=== PATIENT | female | born 1985 | race Caucasian/White ===

== ENCOUNTER 2017-02-24 20:24 | Emergency (ER) | payer OTHER ==
--- NOTE | 2017-02-24 23:59 | ED CLINICAL REPORT ---
Clinical Report - Physicians/Mid Levels [facility] [address] [place] [address] 02/24/2017 20:26 [id number] Time Seen: 20:34; initial patient contact, initial documentation, patient care assumed. Arrived- By private vehicle. Historian- patient. HISTORY OF PRESENT ILLNESS Chief Complaint: PELVIC PAIN. 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 It was abrupt in onset and has been constant. The symptoms are described as moderate. Modifying factors. Not worsened by anything. Not relieved by anything. The patient has had moderate, constant, crampy right-sided, suprapubic and left-sided pelvic pain, described as "pain". No vaginal bleeding. No vaginal pain, low back pain, flank pain, abnormal bleeding or vaginal discharge. No pain with urination, urinary frequency, urgency of urination or hematuria. Sexually active- unprotected sex and heterosexual. No exposure to sexually transmitted disease. Does not use control measures. Currently . In 1st trimester. Recently diagnosed. Uncertain of dates. confirmed with home test. Has had no care. G 6. P 1. Ab 4. Not receiving care. Similar symptoms previously: None. Recent medical care: Not recently seen/assessed. REVIEW OF SYSTEMS No nausea, vomiting, diarrhea, headache or fever. No chills, eye discomfort, sore throat, cough or difficulty breathing. No chest pain, skin rash, enlarged lymph nodes or joint pain. All systems otherwise negative, except as recorded above. PAST HISTORY See nurses notes. ( PROBLEMS: UTI - Urinary Tract Infection. Cough. --20:36 Caitlyn Crawford R.N. Depression. --20:44 Caitlyn Crawford R.N. Nephrolithiasis. --20:46 Caitlyn Crawford R.N. The following entry was modified by Caitlyn Crawford R.N., 20:44 . --20:36 Caitlyn Crawford R.N.. ADDITIONAL SURGERIES: Knee Surgery. --20:36 Crawford, Caitlyn, R.N.). Problems: Scoliosis. Nephrolithiasis. Depression. . Additional Surgeries: Knee Surgery. Medications: None. Allergies: Penicillins.(SOB, swelling). SOCIAL HISTORY Former smoker. No alcohol use or drug use. No recent travel. Is a local resident. FAMILY HISTORY Negative. ADDITIONAL NOTES The nursing notes have been reviewed with agreement regarding the chief complaint, HPI, ROS, PMH and patient medications and allergies. PHYSICAL EXAM Vital Signs: 02/24/2017 20:35 BP: 124/76. HR: 96. RR: 20. O2 saturation: 94%. Temp: 98.2 F. Pain level now: 06/06. Have been reviewed as normal and appear to be correct. Appearance: Alert. Oriented X3. No acute distress. Anxious. HEENT: Normal external inspection. ENT: Pharynx normal. Neck: Neck supple. CVS: Heart sounds normal. Respiratory: No respiratory distress. Breath sounds normal. Chest nontender. Abdomen: Soft and nontender. Bowel sounds normal. No organomegaly. No mass. Mildly obese. Back: Normal external inspection. : External inspection abnormal. Speculum exam abnormal. A copious amount of thick, white and malodorous vaginal discharge present (white to dsouza, dc all over labia, thighs). No herpes-like lesions. Bimanual exam normal. Skin: Skin warm and dry. Normal skin color. No rash. Normal skin turgor. Extremities: Extremities nontender. No lower extremity edema. Neuro: Oriented X 3. Mood/affect normal. No motor deficit. No sensory deficit. LABS, X-RAYS, AND EKG Pelvic Sonogram: A single gestation, viable intrauterine (9 week size) is present. Cardiac activity noted. Adnexa normal. No free fluid. Study type: bedside obstetrical evaluation. The study was independently viewed by me. Prior studies were not available for comparison. Laboratory Tests: UA-Culture if indicated: (ESTRADA: 02/24/2017 21:10) ( MsgRcvd 02/24/2017 21:35) Final results Test Result Flag Units (Reference) URINE COLOR YELLOW URINE APPEARANCE SL CLOUDY URINE GLUCOSE TRACE (NEGATIVE) URINE BILIRUBIN NEGATIVE (NEGATIVE) URINE KETONE TRACE (NEGATIVE) URINE SPECIFIC GRAVITY >= 1.030 (1.010-1.030) URINE PH 5.5 (5.0-8.0) URINE PROTEIN NEGATIVE (NEGATIVE) URINE UROBILINOGEN 0.2 EU/dL (0.2-1.0) URINE NITRITE NEGATIVE (NEGATIVE) URINE BLOOD NEGATIVE (NEGATIVE) URINE LEUK ESTERASE POSITIVE (NEGATIVE) URINE RBC NONE SEEN rbc/hpf (0-1) URINE WBC 3-5 wbc/hpf (0-1) URINE EPITHELIAL CELLS 1-3 EPI/hpf (0-5) URINE BACTERIA MANY (4+) (NONE SEEN) URINE COMMENT CULTURE INDICATED URINE CULTURES ARE SET-UP BASED ON THE FOLLOWING CRITERIA:POSITIVE NITRITEPOSITIVE LEUKOCYTE ESTERASEGREATER THAN 10 WHITE BLOOD CELLSMODERATE (2+) OR GREATER BACTERIA Serum Qualitative: (ESTRADA: 02/24/2017 20:35) ( [facility] [place] 02/24/2017 21:37) Final results Test Result Flag Units (Reference) , SERUM POSITIVE CBC w Diff: (ESTRADA: 02/24/2017 20:35) ( [facility] [place] 21:21) Final results Test Result Flag Units (Reference) WHITE BLOOD COUNT 12.4 H K/uL (4.5-11.5) RED BLOOD COUNT 4.86 M/uL (4.00-5.20) HEMOGLOBIN 13.5 gm/dL (12.0-16.0) HEMATOCRIT 40.5 % (36.0-46.0) MEAN CELL VOLUME 83 fL (80-100) MEAN CORPUSCULAR HGB 28 pg (26-34) MEAN CORPUSCULAR HGB CONC 33 g/dL (31-37) RED CELL DISTRIBUTION WIDTH 14.4 % (11.6-14.8) PLATELET COUNT 295 K/uL (150-400) NEUTROPHIL % 67.6 % (50-75) LYMPH % 26.9 % (25-40) MONO % 5.1 % (3-14) EOSINOPHIL % 0.1 % (0-4) BASOPHIL % 0.3 % (0-2) CMP: (ESTRADA: 02/24/2017 20:35) ( [facility] [place] 02/24/2017 21:23) Final results Test Result Flag Units (Reference) GLUCOSE 117 H mg/dL (70-110) BUN 12 mg/dL (7-18) CREATININE 0.7 mg/dL (0.6-1.3) Estimated GFR >60 mL/min Estimated GFR- >60 mL/min Note: Persistent reduction over 3 months in eGFR<60 mL/min/1.73 m2 defines CKD. Patients with eGFR values>=60 mL/min/1.73 m2 may also have CKD if evidence ofpersistent proteinuria. Additional information may be foundat www.kidney.org. SODIUM 135 L mmol/L (136-145) POTASSIUM 3.8 mmol/L (3.5-5.1) CHLORIDE 103 mmol/L (98-107) CARBON DIOXIDE 21 mmol/L (21-32) CALCIUM 9.4 mg/dL (8.5-10.1) TOTAL PROTEIN 7.2 g/dL (6.4-8.2) ALBUMIN 3.0 L g/dL (3.3-5.0) BILIRUBIN, TOTAL 0.2 mg/dL (0.0-1.0) ALKALINE PHOSPHATASE 67 U/L (46-116) AST (SGOT) 12 L U/L (15-37) ALT (SGPT) 29 U/L (12-78) Wet Prep: (ESTRADA: 02/24/2017 21:20) ( MsgRcvd 02/24/2017 22:12) Final results SPECIMEN DESCRIPTION: CERVIX Test Result Flag Units (Reference) WET MOUNT CLUE CELLS:: NONE EPITHELIAL CELLS: FEW -- SOURCE?: CERVIX WHITE BLOOD CELLS: FEW TRICHOMONAS:: NONE -- YEAST:: NONE . Pulse Oximetry: 02/24/2017 20:35 O2 saturation: 94%. (FIO2 - room air). Interpretation: normal. PROGRESS AND PROCEDURES Course of Care: 23:03 02/24/17. report given to Dr Parra, awaiting US, eta 2330, whom will assume care and f/u with us results Fidel note: I assumed care at 2300, pending US. This was done, and pt was found to have an approximately 9-week IUP. No emergent condition identified. Patient counseled in person regarding the patient's stable condition, test results and diagnosis. Old medical records reviewed. Differential Diagnosis: I considered gastritis, peptic ulcer disease, gastroesophageal reflux disease, acute appendicitis, colon cancer, obstipation, biliary colic, cholecystitis, cholelithiasis, hepatitis, pancreatitis, urinary tract infection, ureterolithiasis, ovarian cyst, ovarian torsion, , ectopic , pelvic inflammatory disease, pelvic abscess, endometriosis and viral syndrome as a possible cause of abdominal pain in this patient. This is a partial list of diagnoses considered. Above considerations are based on history, physical exam and laboratory data. Differential diagnosis was discussed with patient. Disposition: Discharged. Condition: good and stable. CLINICAL IMPRESSION Acute urinary tract infection. No cystitis, pyelonephritis or hematuria. Not associated with indwelling catheter. First trimester intrauterine ; positive test in emergency department. INSTRUCTIONS Drink plenty of fluids. (Your ultrasound looks good--you have a 9-week , and the fetus has a good heartbeat.). Warnings: GENERAL WARNINGS: Return or contact your physician immediately if your condition worsens or changes unexpectedly, if not improving as expected, or if other problems arise. Specifically return if problem worsens. Prescription Medications: Macrobid 100 mg: Take 1 capsule orally every 12 hours for 7 days. No refills. Substitution is permissible. Understanding of the discharge instructions verbalized by patient. Follow-up with: Ovi Ruiz MD, Obstetrics/Gynecology, , [facility], [address] [place] [address] Follow up in about three days even if well. Call for an appointment. Summary of care provided to patient. (Electronically signed by Norma Parra MD 02/25/2017 4:17)
--- NOTE | 2017-02-24 23:59 | ED CLINICAL REPORT ---
Clinical Report - Physicians/Mid Levels [facility] [address] [place] [address] 02/24/2017 20:26 [id number] Time Seen: 20:34; initial patient contact, initial documentation, patient care assumed. Arrived- By private vehicle. Historian- patient. HISTORY OF PRESENT ILLNESS Chief Complaint: PELVIC PAIN. 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 It was abrupt in onset and has been constant. The symptoms are described as moderate. Modifying factors. Not worsened by anything. Not relieved by anything. The patient has had moderate, constant, crampy right-sided, suprapubic and left-sided pelvic pain, described as "pain". No vaginal bleeding. No vaginal pain, low back pain, flank pain, abnormal bleeding or vaginal discharge. No pain with urination, urinary frequency, urgency of urination or hematuria. Sexually active- unprotected sex and heterosexual. No exposure to sexually transmitted disease. Does not use control measures. Currently . In 1st trimester. Recently diagnosed. Uncertain of dates. confirmed with home test. Has had no care. G 6. P 1. Ab 4. Not receiving care. Similar symptoms previously: None. Recent medical care: Not recently seen/assessed. REVIEW OF SYSTEMS No nausea, vomiting, diarrhea, headache or fever. No chills, eye discomfort, sore throat, cough or difficulty breathing. No chest pain, skin rash, enlarged lymph nodes or joint pain. All systems otherwise negative, except as recorded above. PAST HISTORY See nurses notes. ( PROBLEMS: UTI - Urinary Tract Infection. Cough. --20:36 Caitlyn Crawford R.N. Depression. --20:44 Caitlyn Crawford R.N. Nephrolithiasis. --20:46 Caitlyn Crawford R.N. The following entry was modified by Caitlyn Crawford R.N., 20:44 . --20:36 Caitlyn Crawford R.N.. ADDITIONAL SURGERIES: Knee Surgery. --20:36 Crawford, Caitlyn, R.N.). Problems: Scoliosis. Nephrolithiasis. Depression. . Additional Surgeries: Knee Surgery. Medications: None. Allergies: Penicillins.(SOB, swelling). SOCIAL HISTORY Former smoker. No alcohol use or drug use. No recent travel. Is a local resident. FAMILY HISTORY Negative. ADDITIONAL NOTES The nursing notes have been reviewed with agreement regarding the chief complaint, HPI, ROS, PMH and patient medications and allergies. PHYSICAL EXAM Vital Signs: 02/24/2017 20:35 BP: 124/76. HR: 96. RR: 20. O2 saturation: 94%. Temp: 98.2 F. Pain level now: 06/06. Have been reviewed as normal and appear to be correct. Appearance: Alert. Oriented X3. No acute distress. Anxious. HEENT: Normal external inspection. ENT: Pharynx normal. Neck: Neck supple. CVS: Heart sounds normal. Respiratory: No respiratory distress. Breath sounds normal. Chest nontender. Abdomen: Soft and nontender. Bowel sounds normal. No organomegaly. No mass. Mildly obese. Back: Normal external inspection. : External inspection abnormal. Speculum exam abnormal. A copious amount of thick, white and malodorous vaginal discharge present (white to dsouza, dc all over labia, thighs). No herpes-like lesions. Bimanual exam normal. Skin: Skin warm and dry. Normal skin color. No rash. Normal skin turgor. Extremities: Extremities nontender. No lower extremity edema. Neuro: Oriented X 3. Mood/affect normal. No motor deficit. No sensory deficit. LABS, X-RAYS, AND EKG Pelvic Sonogram: A single gestation, viable intrauterine (9 week size) is present. Cardiac activity noted. Adnexa normal. No free fluid. Study type: bedside obstetrical evaluation. The study was independently viewed by me. Prior studies were not available for comparison. Laboratory Tests: UA-Culture if indicated: (ESTRADA: 02/24/2017 21:10) ( MsgRcvd 02/24/2017 21:35) Final results Test Result Flag Units (Reference) URINE COLOR YELLOW URINE APPEARANCE SL CLOUDY URINE GLUCOSE TRACE (NEGATIVE) URINE BILIRUBIN NEGATIVE (NEGATIVE) URINE KETONE TRACE (NEGATIVE) URINE SPECIFIC GRAVITY >= 1.030 (1.010-1.030) URINE PH 5.5 (5.0-8.0) URINE PROTEIN NEGATIVE (NEGATIVE) URINE UROBILINOGEN 0.2 EU/dL (0.2-1.0) URINE NITRITE NEGATIVE (NEGATIVE) URINE BLOOD NEGATIVE (NEGATIVE) URINE LEUK ESTERASE POSITIVE (NEGATIVE) URINE RBC NONE SEEN rbc/hpf (0-1) URINE WBC 3-5 wbc/hpf (0-1) URINE EPITHELIAL CELLS 1-3 EPI/hpf (0-5) URINE BACTERIA MANY (4+) (NONE SEEN) URINE COMMENT CULTURE INDICATED URINE CULTURES ARE SET-UP BASED ON THE FOLLOWING CRITERIA:POSITIVE NITRITEPOSITIVE LEUKOCYTE ESTERASEGREATER THAN 10 WHITE BLOOD CELLSMODERATE (2+) OR GREATER BACTERIA Serum Qualitative: (ESTRADA: 02/24/2017 20:35) ( [facility] [place] 21:37) Final results Test Result Flag Units (Reference) , SERUM POSITIVE CBC w Diff: (ESTRADA: 02/24/2017 20:35) ( [facility] [place] 21:21) Final results Test Result Flag Units (Reference) WHITE BLOOD COUNT 12.4 H K/uL (4.5-11.5) RED BLOOD COUNT 4.86 M/uL (4.00-5.20) HEMOGLOBIN 13.5 gm/dL (12.0-16.0) HEMATOCRIT 40.5 % (36.0-46.0) MEAN CELL VOLUME 83 fL (80-100) MEAN CORPUSCULAR HGB 28 pg (26-34) MEAN CORPUSCULAR HGB CONC 33 g/dL (31-37) RED CELL DISTRIBUTION WIDTH 14.4 % (11.6-14.8) PLATELET COUNT 295 K/uL (150-400) NEUTROPHIL % 67.6 % (50-75) LYMPH % 26.9 % (25-40) MONO % 5.1 % (3-14) EOSINOPHIL % 0.1 % (0-4) BASOPHIL % 0.3 % (0-2) CMP: (ESTRADA: 02/24/2017 20:35) ( [facility] [place] 21:23) Final results Test Result Flag Units (Reference) GLUCOSE 117 H mg/dL (70-110) BUN 12 mg/dL (7-18) CREATININE 0.7 mg/dL (0.6-1.3) Estimated GFR >60 mL/min Estimated GFR- >60 mL/min Note: Persistent reduction over 3 months in eGFR<60 mL/min/1.73 m2 defines CKD. Patients with eGFR values>=60 mL/min/1.73 m2 may also have CKD if evidence ofpersistent proteinuria. Additional information may be foundat www.kidney.org. SODIUM 135 L mmol/L (136-145) POTASSIUM 3.8 mmol/L (3.5-5.1) CHLORIDE 103 mmol/L (98-107) CARBON DIOXIDE 21 mmol/L (21-32) CALCIUM 9.4 mg/dL (8.5-10.1) TOTAL PROTEIN 7.2 g/dL (6.4-8.2) ALBUMIN 3.0 L g/dL (3.3-5.0) BILIRUBIN, TOTAL 0.2 mg/dL (0.0-1.0) ALKALINE PHOSPHATASE 67 U/L (46-116) AST (SGOT) 12 L U/L (15-37) ALT (SGPT) 29 U/L (12-78) Wet Prep: (ESTRADA: 02/24/2017 21:20) ( MsgRcvd 02/24/2017 22:12) Final results SPECIMEN DESCRIPTION: CERVIX Test Result Flag Units (Reference) WET MOUNT CLUE CELLS:: NONE EPITHELIAL CELLS: FEW -- SOURCE?: CERVIX WHITE BLOOD CELLS: FEW TRICHOMONAS:: NONE -- YEAST:: NONE . Pulse Oximetry: 02/24/2017 20:35 O2 saturation: 94%. (FIO2 - room air). Interpretation: normal. PROGRESS AND PROCEDURES Course of Care: 23:03 02/24/17. report given to Dr Parra, awaiting US, eta 2330, whom will assume care and f/u with us results Fidel note: I assumed care at 2300, pending US. This was done, and pt was found to have an approximately 9-week IUP. No emergent condition identified. Patient counseled in person regarding the patient's stable condition, test results and diagnosis. Old medical records reviewed. Differential Diagnosis: I considered gastritis, peptic ulcer disease, gastroesophageal reflux disease, acute appendicitis, colon cancer, obstipation, biliary colic, cholecystitis, cholelithiasis, hepatitis, pancreatitis, urinary tract infection, ureterolithiasis, ovarian cyst, ovarian torsion, , ectopic , pelvic inflammatory disease, pelvic abscess, endometriosis and viral syndrome as a possible cause of abdominal pain in this patient. This is a partial list of diagnoses considered. Above considerations are based on history, physical exam and laboratory data. Differential diagnosis was discussed with patient. Disposition: Discharged. Condition: good and stable. CLINICAL IMPRESSION Acute urinary tract infection. No cystitis, pyelonephritis or hematuria. Not associated with indwelling catheter. First trimester intrauterine ; positive test in emergency department. INSTRUCTIONS Drink plenty of fluids. (Your ultrasound looks good--you have a 9-week , and the fetus has a good heartbeat.). Warnings: GENERAL WARNINGS: Return or contact your physician immediately if your condition worsens or changes unexpectedly, if not improving as expected, or if other problems arise. Specifically return if problem worsens. Prescription Medications: Macrobid 100 mg: Take 1 capsule orally every 12 hours for 7 days. No refills. Substitution is permissible. Understanding of the discharge instructions verbalized by patient. Follow-up with: Ovi Ruiz MD, Obstetrics/Gynecology, , [facility], [address] [place] [address] Follow up in about three days even if well. Call for an appointment. Summary of care provided to patient. (Electronically signed by Norma Parra MD 02/25/2017 4:17)
--- NOTE | 2017-02-25 | ED NURSING NOTES ---
Clinical Report - Nurses [facility] [address] [place] [address] 02/24/2017 20:26 Patient: SAMARIA AGGARWAL TRIAGE Triage time 2038 PM. Acuity: LEVEL 3. Chief Complaint: ABDOMINAL PAIN and CRAMPS. Alert. No acute distress. MARCELA COMA SCORE: [place] Coma Scale: 15- eyes open spontaneously (4); best verbal response- oriented x 4 (5); best motor response- obeys commands (6). --20:47 Caitlyn Crawford R.N. 20:35 02/24/17. BP: 124/76. HR: 96. RR: 20. O2 saturation: 94%. Temp: 98.2 F (oral). Pain level now: 10. --20:47 Caitlyn Crawford R.N. Weight: 106.5 kg stated. Height/Length: 64 inches Per Patient. BMI: 40.3. --20:37 Caitlyn Crawford R.N. Medications None. --20:36 Caitlyn Crawford R.N. Medication/allergy information source: the patient. --20:47 Caitlyn Crawford R.N. Allergies Penicillins.(SOB, swelling) --20:36 Caitlyn Crawford R.N. History Arrived by private vehicle. Historian: patient. Accompanied by family. Primary physician (None-). ( Pt states feeling abdominal cramping for the past 20-30 minutes, admits being , no care, took a test 5 weeks ago, which came back positive, repeated again 2 weeks ago and again 1 week. Denies any vaginal bleeding, denies vomiting. Here for further evaluation). This started today. No vomiting or swelling. Treatment STRATEGIC COMMUNICATIONS MANAGER: None. PAST MEDICAL HX: Immunizations: up-to-date. Sexual history - sexually active. No contraception. Currently . confirmed with home test. Has had no care. G 1. P 2. SOCIAL HX: Former smoker, end date 2007. No alcohol use or drug use. No infectious disease exposure. ABUSE ASSESSMENT: No report of abuse. SELF HARM ASSESSMENT: A self harm assessment was performed. The patient answered "no" to the question "Do you have thoughts of harming or killing yourself?" and "Have you recently had thoughts about harming or killing others?". FALL RISK ASSESSMENT: Fall risk assessment completed. No fall risk identified. NUTRITIONAL RISK ASSESSMENT: The nutritional risk assessment revealed no deficiencies. FUNCTIONAL ASSESSMENT: Functional assessment: no impairments noted. LEARNING NEEDS ASSESSMENT: The learning needs assessment revealed no barriers. SKIN INTEGRITY ASSESSMENT: Skin integrity risk assessment completed. No skin integrity risk identified. --20:47 Caitlyn Crawford R.N. PROBLEMS: UTI - Urinary Tract Infection. Cough. --20:36 Caitlyn Crawford R.N. Depression. --20:44 Caitlyn Crawford R.N. Nephrolithiasis. --20:46 Caitlyn Crawford R.N. Scoliosis. --22:03 Caitlyn Crawford R.N. The following entry was modified by Caitlyn Crawford R.N., 20:44 <<STRICKEN ENTRY-- . --20:36 Caitlyn Crawford R.N. --END STRIKE>>. ADDITIONAL SURGERIES: Knee Surgery. --20:36 Caitlyn Crawford R.N. Interventions ID band on patient. --20:47 Caitlyn Crawford R.N. PHYSICAL ASSESSMENT Ambulatory to room. GENERAL / NEURO / PSYCH: Alert. Oriented X 4. Appears in pain and anxious. HEENT: Mucous membranes are pink. RESPIRATORY: Respirations not labored. CVS: Capillary refill less than 2 seconds. GI / : Abdomen soft. Genital lesions noted. Vaginal bleeding. Vaginal discharge. EXTREMITIES: No lower extremity edema. SKIN: Skin is warm and dry. --20:48 Caitlyn Crawford R.N. NURSING PROGRESS NOTES The initial plan of care for this patient has been created This plan of care was discussed with the patient. Patient gowned. Reassurance given. Two patient identifiers checked. Call light placed in reach. Side rails up x 1. Bed placed in lowest position. Brakes of bed on. Patient ready for evaluation- COACH notified. --20:49 Caitlyn Crawford R.N. 20:50 02/24/2017 Site #1 started via IV in the right hand with an 20g angiocath. Blood drawn: rainbow set. Labeled in the presence of the patient and sent to the lab. --21:05 Caitlyn Crawford R.N. Reassurance given. The patient is calm. Overall patient status- she states feels better. ( Pt is waiting on US, aware of results of . Emotional support provided.). GI / : The patient reports pelvic pain. SKIN: Skin is warm and dry. Call light placed in reach. Bed placed in lowest position. --21:54 Caitlyn Crawford R.N. 21:53 02/24/17. BP: 105/52 (large adult cuff) taken on the left arm, via an automated monitor, while lying. HR: 99. RR: 15. O2 saturation: 100% on room air. Temp: 97.9 F (oral). Pain level now: 04/06. --21:54 Caitlyn Crawford R.N. Care transferred and report given (Gladys Fountain). --22:05 Caitlyn Crawford R.N. 22:39 02/24/2017 Zofran (Ondansetron HCl) IVP 4 mg given over 1 minute(s) via site #1. Allergies verified and confirmed 5 rights. IV patency established. IV site checked: no pain, redness, or swelling. IV flushed thoroughly pre- and post-medication administration. IVP given by RN. --22:39 Shannon Loza Care transferred and report received. --23:19 Betina Haley R.N. DISPOSITION / DISCHARGE 00:21 02/25/17. BP: 100/58. HR: 70. RR: 20. O2 saturation: 98% on room air. Temp: 98.4 F (oral). Pain level now: 02/04. --00:22 Shannon Loza 00:18 02/25/2017 Site #1 removed upon discharge. Catheter intact. Bandaid applied. --00:23 Shannon Loza 00:22 02/25/17. Condition at departure: stable. The goals identified in the patient's plan of care were met. No learning barriers present. Discharge instructions provided and reviewed with the patient and spouse. Reviewed medication(s) side effects, precautions, dosing and course information. Prescription(s) given to the patient. Reviewed need for increased fluid intake. Patient and spouse verbalized understanding. Written instructions provided in [place]. ( Follow up with ALLERGY PHYSICIAN in three days. Ovi Ruiz contact information provided. Be sure to drink plenty of fluids. Return if symptoms worsen.). The patient was discharged by the physician. She was discharged home and accompanied by spouse. She left the Emergency Department ambulatory and via private vehicle. Spouse driving. FALL RISK ASSESSMENT: Fall risk assessment completed. No fall risk identified. --00:22 Shannon Loza ( Provider aware of patient vitals, patient clear for discharge). --00:23 Shannon Loza. Locked/Released at 02/25/2017 1:58 by Shannon Loza,
--- NOTE | 2017-02-25 | ED ORDER SUMMARY ---
..... Patient: SAMARIA AGGARWAL OrderSheet [facility] VisitID: [id number] [place] [address] 32y, F Registration Date/Time: 02/24/2017 ORDER SHEET Weight: 106.5 kg (stated) Allergies: Penicillins GENERAL ORDERS: CBC w Diff Urgent (20:50 02/24/2017 HBivens A.R.N.P.) (Ack 20:51 SBaldwin) (21:05 EHassan R.N.) CMP Urgent (20:50 02/24/2017 HBivens A.R.N.P.) (Ack 20:51 SBaldwin) (21:05 EHassan R.N.) UA-Culture if indicated Urgent (20:50 02/24/2017 HBivens A.R.N.P.) (Ack 20:51 SBaldwin) (21:19 MIKEYuller) Serum Qualitative Urgent (20:50 02/24/2017 HBivens A.R.N.P.) (Ack 20:51 SBaldwin) (21:05 EHassan R.N.) Pelvic Exam Setup (20:50 02/24/2017 HBivens A.R.N.P.) (Ack 20:51 SBaldwin) (21:05 EHassan R.N.) Wet Prep (Vaginal) (cervix) Urgent (21:43 02/24/2017 HBivens A.R.N.P.) (Ack 21:45 SBaldwin) (21:48 EHassan R.N.) US OB 1st Trimester w Transvag (5 wks) Urgent (21:43 02/24/2017 HBivens A.R.N.P.) (Ack 21:45 SBaldwin) (23:29 Kamini) Serum Quantitative Urgent (21:44 02/24/2017 HBivens A.R.N.P.) (Ack 21:45 SBaldwin) (21:48 EHassan R.N.) MEDICATION ORDERS: IV FLUIDS: IV Saline Lock (20:50 02/24/2017 HBivens A.R.N.P.) (21:05 EHassan R.N.) Zofran IV 4 mg (NOW) (22:31 02/24/2017 Hossein R.N. verbal order read back to Lilly Argueta) (Ack 22:36 HSoule) (22:39 HSoule) ORDER SHEET NOTES: [Electronically signed by Shannon Loza (01:58 02/25/2017)] [Electronically signed by Norma Parra MD (04:17 02/25/2017)] [Electronically locked/signed by Shannon Loza (01:58 02/25/2017)]
--- NOTE | 2017-02-25 | ED ORDER SUMMARY ---
..... Patient: SAMARIA AGGARWAL OrderSheet [facility] VisitID: [id number] [place] [address] 32y, F Registration Date/Time: 02/24/2017 ORDER SHEET Weight: 106.5 kg (stated) Allergies: Penicillins GENERAL ORDERS: CBC w Diff Urgent (20:50 02/24/2017 HBivens A.R.N.P.) (Ack 20:51 SBaldwin) (21:05 EHassan R.N.) CMP Urgent (20:50 02/24/2017 HBivens A.R.N.P.) (Ack 20:51 SBaldwin) (21:05 EHassan R.N.) UA-Culture if indicated Urgent (20:50 02/24/2017 HBivens A.R.N.P.) (Ack 20:51 SBaldwin) (21:19 MIKEYuller) Serum Qualitative Urgent (20:50 02/24/2017 HBivens A.R.N.P.) (Ack 20:51 SBaldwin) (21:05 EHassan R.N.) Pelvic Exam Setup (20:50 02/24/2017 HBivens A.R.N.P.) (Ack 20:51 SBaldwin) (21:05 EHassan R.N.) Wet Prep (Vaginal) (cervix) Urgent (21:43 02/24/2017 HBivens A.R.N.P.) (Ack 21:45 SBaldwin) (21:48 EHassan R.N.) US OB 1st Trimester w Transvag (5 wks) Urgent (21:43 02/24/2017 HBivens A.R.N.P.) (Ack 21:45 SBaldwin) (23:29 Kamini) Serum Quantitative Urgent (21:44 02/24/2017 HBivens A.R.N.P.) (Ack 21:45 SBaldwin) (21:48 EHassan R.N.) MEDICATION ORDERS: IV FLUIDS: IV Saline Lock (20:50 02/24/2017 HBivens A.R.N.P.) (21:05 EHassan R.N.) Zofran IV 4 mg (NOW) (22:31 02/24/2017 Hossein R.N. verbal order read back to Lilly Argueta) (Ack 22:36 HSoule) (22:39 HSoule) ORDER SHEET NOTES: [Electronically signed by Shannon Loza (01:58 02/25/2017)] [Electronically signed by Norma Parra MD (04:17 02/25/2017)] [Electronically locked/signed by Shannon Loza (01:58 02/25/2017)]
--- NOTE | 2017-02-25 | ED NURSING NOTES ---
Clinical Report - Nurses [facility] [address] [place] [address] 02/24/2017 20:26 Patient: SAMARIA AGGARWAL TRIAGE Triage time 2038 PM. Acuity: LEVEL 3. Chief Complaint: ABDOMINAL PAIN and CRAMPS. Alert. No acute distress. MARCELA COMA SCORE: [place] Coma Scale: 15- eyes open spontaneously (4); best verbal response- oriented x 4 (5); best motor response- obeys commands (6). --20:47 Caitlyn Crawford R.N. 20:35 02/24/17. BP: 124/76. HR: 96. RR: 20. O2 saturation: 94%. Temp: 98.2 F (oral). Pain level now: 10. --20:47 Caitlyn Crawford R.N. Weight: 106.5 kg stated. Height/Length: 64 inches Per Patient. BMI: 40.3. --20:37 Caitlyn Crawford R.N. Medications None. --20:36 Caitlyn Crawford R.N. Medication/allergy information source: the patient. --20:47 Caitlyn Crawford R.N. Allergies Penicillins.(SOB, swelling) --20:36 Caitlyn Crawford R.N. History Arrived by private vehicle. Historian: patient. Accompanied by family. Primary physician (None-). ( Pt states feeling abdominal cramping for the past 20-30 minutes, admits being , no care, took a test 5 weeks ago, which came back positive, repeated again 2 weeks ago and again 1 week. Denies any vaginal bleeding, denies vomiting. Here for further evaluation). This started today. No vomiting or swelling. Treatment PROGRAMS DIRECTOR: None. PAST MEDICAL HX: Immunizations: up-to-date. Sexual history - sexually active. No contraception. Currently . confirmed with home test. Has had no care. G 1. P 2. SOCIAL HX: Former smoker, end date 2007. No alcohol use or drug use. No infectious disease exposure. ABUSE ASSESSMENT: No report of abuse. SELF HARM ASSESSMENT: A self harm assessment was performed. The patient answered "no" to the question "Do you have thoughts of harming or killing yourself?" and "Have you recently had thoughts about harming or killing others?". FALL RISK ASSESSMENT: Fall risk assessment completed. No fall risk identified. NUTRITIONAL RISK ASSESSMENT: The nutritional risk assessment revealed no deficiencies. FUNCTIONAL ASSESSMENT: Functional assessment: no impairments noted. LEARNING NEEDS ASSESSMENT: The learning needs assessment revealed no barriers. SKIN INTEGRITY ASSESSMENT: Skin integrity risk assessment completed. No skin integrity risk identified. --20:47 Caitlyn Crawford R.N. PROBLEMS: UTI - Urinary Tract Infection. Cough. --20:36 Caitlyn Crawford R.N. Depression. --20:44 Caitlyn Crawford R.N. Nephrolithiasis. --20:46 Caitlyn Crawford R.N. Scoliosis. --22:03 Caitlyn Crawford R.N. The following entry was modified by Caitlyn Crawford R.N., 20:44 <<STRICKEN ENTRY-- . --20:36 Caitlyn Crawford R.N. --END STRIKE>>. ADDITIONAL SURGERIES: Knee Surgery. --20:36 Caitlyn Crawford R.N. Interventions ID band on patient. --20:47 Caitlyn Crawford R.N. PHYSICAL ASSESSMENT Ambulatory to room. GENERAL / NEURO / PSYCH: Alert. Oriented X 4. Appears in pain and anxious. HEENT: Mucous membranes are pink. RESPIRATORY: Respirations not labored. CVS: Capillary refill less than 2 seconds. GI / : Abdomen soft. Genital lesions noted. Vaginal bleeding. Vaginal discharge. EXTREMITIES: No lower extremity edema. SKIN: Skin is warm and dry. --20:48 Caitlyn Crawford R.N. NURSING PROGRESS NOTES The initial plan of care for this patient has been created This plan of care was discussed with the patient. Patient gowned. Reassurance given. Two patient identifiers checked. Call light placed in reach. Side rails up x 1. Bed placed in lowest position. Brakes of bed on. Patient ready for evaluation- DAIRY HUSBANDRY TEACHER notified. --20:49 Caitlyn Crawford R.N. 20:50 02/24/2017 Site #1 started via IV in the right hand with an 20g angiocath. Blood drawn: rainbow set. Labeled in the presence of the patient and sent to the lab. --21:05 Caitlyn Crawford R.N. Reassurance given. The patient is calm. Overall patient status- she states feels better. ( Pt is waiting on US, aware of results of . Emotional support provided.). GI / : The patient reports pelvic pain. SKIN: Skin is warm and dry. Call light placed in reach. Bed placed in lowest position. --21:54 Caitlyn Crawford R.N. 21:53 02/24/17. BP: 105/52 (large adult cuff) taken on the left arm, via an automated monitor, while lying. HR: 99. RR: 15. O2 saturation: 100% on room air. Temp: 97.9 F (oral). Pain level now: 04/06. --21:54 Caitlyn Crawford R.N. Care transferred and report given (Gladys Fountain). --22:05 Caitlyn Crawford R.N. 22:39 02/24/2017 Zofran (Ondansetron HCl) IVP 4 mg given over 1 minute(s) via site #1. Allergies verified and confirmed 5 rights. IV patency established. IV site checked: no pain, redness, or swelling. IV flushed thoroughly pre- and post-medication administration. IVP given by RN. --22:39 Shannon Loza Care transferred and report received. --23:19 Betina Haley R.N. DISPOSITION / DISCHARGE 00:21 02/25/17. BP: 100/58. HR: 70. RR: 20. O2 saturation: 98% on room air. Temp: 98.4 F (oral). Pain level now: 02/04. --00:22 Shannon Loza 00:18 02/25/2017 Site #1 removed upon discharge. Catheter intact. Bandaid applied. --00:23 Shannon Loza 00:22 02/25/17. Condition at departure: stable. The goals identified in the patient's plan of care were met. No learning barriers present. Discharge instructions provided and reviewed with the patient and spouse. Reviewed medication(s) side effects, precautions, dosing and course information. Prescription(s) given to the patient. Reviewed need for increased fluid intake. Patient and spouse verbalized understanding. Written instructions provided in [place]. ( Follow up with [facility] INSPECTOR in three days. Ovi Ruiz contact information provided. Be sure to drink plenty of fluids. Return if symptoms worsen.). The patient was discharged by the physician. She was discharged home and accompanied by spouse. She left the Emergency Department ambulatory and via private vehicle. Spouse driving. FALL RISK ASSESSMENT: Fall risk assessment completed. No fall risk identified. --00:22 Shannon Loza ( Provider aware of patient vitals, patient clear for discharge). --00:23 Shannon Loza. Locked/Released at 02/25/2017 1:58 by Shannon Loza,
--- NOTE | 2017-02-25 04:17 | ED MED RECONCILIATION SUMMARY ---
Patient: SAMARIA AGGARWAL Medication Reconciliation Report [facility] VisitID: [id number] [address] [place] [address] 32y, F Registration Date/Time: 02/24/2017 Weight: 106.5 kg Height/Length: 64 in. BMI: 40.3 ALLERGIES: Penicillins The patient's Home Medications are listed below: NONE. The source(s) of the original Home Medication information: patient The following Medications were given to the patient in the Emergency Department: Zofran [IVP] IVP 4 mg, administered: 02/24/2017 10:39:00 PM The following Medications were prescribed to the patient: Macrobid 100 mg: Take 1 capsule orally every 12 hours for 7 days. No refills. Substitution is permissible. -- Norma Parra MD
--- NOTE | 2017-02-25 04:17 | ED MAR SUMMARY ---
..... Medication Administration Record [facility] [address] [place] [address] Patient: SAMARIA AGGARWAL Visit ID: [id number] 32y, F Weight: 106.5 kg Height/Length: 64 in BMI: 40.3 ALLERGIES: Penicillins Given 22:39 02/24/2017 Shannon Loza, Medication Administered: ZOFRAN [IVP] (ONDANSETRON HCL), Dose: 4 mg IVP over 1 minute(s), Site: #1 right hand. Medication Ordered: Zofran IV 4 mg (NOW).
--- NOTE | 2017-02-25 04:17 | ED MED RECONCILIATION SUMMARY ---
Patient: SAMARIA AGGARWAL Medication Reconciliation Report [facility] VisitID: [id number] [address] [place] [address] 32y, F Registration Date/Time: 02/24/2017 Weight: 106.5 kg Height/Length: 64 in. BMI: 40.3 ALLERGIES: Penicillins The patient's Home Medications are listed below: NONE. The source(s) of the original Home Medication information: patient The following Medications were given to the patient in the Emergency Department: Zofran [IVP] IVP 4 mg, administered: 02/24/2017 10:39:00 PM The following Medications were prescribed to the patient: Macrobid 100 mg: Take 1 capsule orally every 12 hours for 7 days. No refills. Substitution is permissible. -- Norma Parra MD
--- NOTE | 2017-02-25 04:17 | ED DISCHARGE INSTRUCTIONS ---
Patient: SAMARIA AGGARWAL General Instructions [facility] VisitID: [id number] [place] [address] 32y, F Registration Date/Time: 02/24/2017 Acute urinary tract infection. No cystitis, pyelonephritis or hematuria. Not associated with indwelling catheter. First trimester intrauterine ; positive test in emergency department. INSTRUCTIONS Drink plenty of fluids. (Your ultrasound looks good--you have a 9-week , and the fetus has a good heartbeat.). Warnings: GENERAL WARNINGS: Return or contact your physician immediately if your condition worsens or changes unexpectedly, if not improving as expected, or if other problems arise. Specifically return if problem worsens. Prescription Medications: Macrobid 100 mg: Take 1 capsule orally every 12 hours for 7 days. No refills. Substitution is permissible. Understanding of the discharge instructions verbalized by patient. Follow-up with: Ovi Ruiz MD, Obstetrics/Gynecology, , [facility], [address] [place] [address] Follow up in about three days even if well. Call for an appointment. Summary of care provided to patient. ADDITIONAL INFORMATION Bladder Infection,Female (Adult) A bladder infection ("cystitis" or "UTI") usually causes a constant urge to urinate and a burning when passing urine. Urine may be cloudy, smelly or dark. There may be pain in the lower abdomen. A bladder infection occurs when bacteria from the vaginal area enter the bladder opening (urethra). This can occur from sexual intercourse, wearing tight clothing, dehydration and other factors. Home Care: Drink lots of fluids (at least 6-8 glasses a day, unless you must restrict fluids for other medical reasons). This will force the medicine into your urinary system and flush the bacteria out of your body. Avoid sexual intercourse until your symptoms are gone. Avoid caffeine, alcohol and spicy foods. These can irritate the bladder. A bladder infection is treated with antibiotics. You may also be given Pyridium (generic = phenazopyridine) to reduce the burning sensation. This medicine will cause your urine to become a bright orange color. The orange urine may stain clothing. You may wear a pad or panty-liner to protect clothing. Preventing Future Infections: Always wipe from front to back after a bowel movement. Keep the genital area clean and dry. Drink plenty of fluids each day to avoid dehydration. Both sexual partners should wash before intercourse. Urinate right after intercourse to flush out the bladder. Wear cotton underwear and cotton-lined panty hose; avoid tight-fitting pants. If you are on control pills and are having frequent bladder infections, discuss with your doctor. Follow Up: Return to this facility or see your doctor if ALL symptoms are not gone after three days of treatment. Get Prompt Medical Attention if any of the following occur: Fever of 100.4F (38C) or higher, or as directed by your healthcare provider No improvement by the third day of treatment Increasing back or abdominal pain Repeated vomiting; unable to keep medicine down Weakness, dizziness or fainting Vaginal discharge Pain, redness or swelling in the labia (outer vaginal area) Your exam today shows that you are . During , it is normal to develop tender swollen breasts, frequent urination and mild vaginal discharge. During the first three months, nausea is common. Guidelines For A Healthy : To ensure that your baby is born healthy there are certain things that you can do: When you feel tired, you should REST. This is especially true in the later months of . Your body needs more FLUIDS than you may be used to: You should drink 8-10 glasses of juice, milk or water. Eat well-balanced MEALS at regular intervals to supply your body with enough protein. You can expect a total weight gain of about 30 pounds during the . Do not try to diet or lose weight while you are . Because of the extra nutritional needs during , take one VITAMIN daily. Do not take any other MEDICINE during your (prescribed or kytv-[id number]-[id number]) unless your doctor specifically recommends this. Many drugs can have harmful effects on the growing baby. If NAUSEA or VOMITING become a problem, avoid greasy and fried foods. Eat several smaller meals throughout the day rather than three large meals. If you SMOKE, you must stop. The nicotine you breathe in goes right to the baby. Stay away from ALCOHOL, even in moderate amounts. Daily drinking will harm your baby and can cause permanent brain damage. RECREATIONAL DRUGS are harmful, especially cocaine, crack, and heroin. Marijuana should also be avoided. If you were using recreational drugs or prescribed medicine when you found out that you were , talk to your doctor about possible effects on the fetus. Follow Up: Call to arrange for care. This can be provided by your family doctor, an policy writer ( specialist) or a primary care clinic. Get Prompt Medical Attention if any of the following occur: Vaginal bleeding Moderate or severe abdominal or back pain Excessive vomiting, unable to keep any fluids down for six hours Burning with urination Headache, dizziness or rapid weight gain Your exam today shows that you are . During , it is normal to develop tender swollen breasts, frequent urination and mild vaginal discharge. During the first three months, nausea is common. Guidelines For A Healthy : To ensure that your baby is born healthy there are certain things that you can do: When you feel tired, you should REST. This is especially true in the later months of . Your body needs more FLUIDS than you may be used to: You should drink 8-10 glasses of juice, milk or water. Eat well-balanced MEALS at regular intervals to supply your body with enough protein. You can expect a total weight gain of about 30 pounds during the . Do not try to diet or lose weight while you are . Because of the extra nutritional needs during , take one VITAMIN daily. Do not take any other MEDICINE during your (prescribed or byrz-bdi-hexlath) unless your doctor specifically recommends this. Many drugs can have harmful effects on the growing baby. If NAUSEA or VOMITING become a problem, avoid greasy and fried foods. Eat several smaller meals throughout the day rather than three large meals. If you SMOKE, you must stop. The nicotine you breathe in goes right to the baby. Stay away from ALCOHOL, even in moderate amounts. Daily drinking will harm your baby and can cause permanent brain damage. RECREATIONAL DRUGS are harmful, especially cocaine, crack, and heroin. Marijuana should also be avoided. If you were using recreational drugs or prescribed medicine when you found out that you were , talk to your doctor about possible effects on the fetus. Follow Up: Call to arrange for care. This can be provided by your family doctor, an policy writer ( specialist) or a primary care clinic. Get Prompt Medical Attention if any of the following occur: Vaginal bleeding Moderate or severe abdominal or back pain Excessive vomiting, unable to keep any fluids down for six hours Burning with urination Headache, dizziness or rapid weight gain Nitrofurantoin, Nitrofurantoin, Macrocrystalline Oral capsule What is this medicine? NITROFURANTOIN (austin smith) is an antibiotic. It is used to treat urinary tract infections. How should I use this medicine? Take this medicine by mouth with a glass of water. Follow the directions on the prescription label. Take this medicine with food or milk. Take your doses at regular intervals. Do not take your medicine more often than directed. Do not stop taking except on your doctor's advice. Talk to your director of field service regarding the use of this medicine in children. While this drug may be prescribed for selected conditions, precautions do apply. What side effects may I notice from receiving this medicine? Side effects that you should report to your doctor or health care process manager as soon as possible: allergic reactions like skin rash or hives, swelling of the face, lips, or tongue chest pain cough difficulty breathing dizziness, drowsiness fever or infection joint aches or pains pale or blue-tinted skin redness, blistering, peeling or loosening of the skin, including inside the mouth tingling, burning, pain, or numbness in hands or feet unusual bleeding or bruising unusually weak or tired yellowing of eyes or skin Side effects that usually do not require medical attention (report to your doctor or health care process manager if they continue or are bothersome): dark urine diarrhea headache loss of appetite nausea or vomiting temporary hair loss What may interact with this medicine? antacids containing magnesium trisilicate probenecid quinolone antibiotics like ciprofloxacin, lomefloxacin, norfloxacin and ofloxacin sulfinpyrazone What if I miss a dose? If you miss a dose, take it as soon as you can. If it is almost time for your next dose, take only that dose. Do not take double or extra doses. Where should I keep my medicine? Keep out of the reach of children. Store at room temperature between 15 and 30 degrees C (59 and 86 degrees F). Protect from light. Throw away any unused medicine after the expiration date. What should I tell my health care provider before I take this medicine? They need to know if you have any of these conditions: anemia diabetes gqweqeu-2-mpgrmrgpy dehydrogenase deficiency kidney disease liver disease lung disease other chronic illness an unusual or allergic reaction to nitrofurantoin, other antibiotics, other medicines, foods, dyes or preservatives or trying to get breast-feeding What should I watch for while using this medicine? Tell your doctor or health care process manager if your symptoms do not improve or if you get new symptoms. Drink several glasses of water a day. If you are taking this medicine for a long time, visit your doctor for regular checks on your progress. If you are diabetic, you may get a false positive result for sugar in your urine with certain brands of urine tests. Check with your doctor. You have been given the following additional information: Bladder Infection, Female (Adult) , New Dx , New Dx Nitrofurantoin, Nitrofurantoin, Macrocrystalline Oral capsule (Electronically signed by oNrma Parra MD 02/25/2017 4:17)
--- NOTE | 2017-02-25 04:17 | ED MAR SUMMARY ---
..... Medication Administration Record [facility] [address] [place] [address] Patient: SAMARIA AGGARWAL Visit ID: [id number] 32y, F Weight: 106.5 kg Height/Length: 64 in BMI: 40.3 ALLERGIES: Penicillins Given 22:39 02/24/2017 Shannon Loza, Medication Administered: ZOFRAN [IVP] (ONDANSETRON HCL), Dose: 4 mg IVP over 1 minute(s), Site: #1 right hand. Medication Ordered: Zofran IV 4 mg (NOW).
--- NOTE | 2017-02-25 04:17 | ED DISCHARGE INSTRUCTIONS ---
Patient: SAMARIA AGGARWAL General Instructions [facility] VisitID: [id number] [place] [address] 32y, F Registration Date/Time: 02/24/2017 Acute urinary tract infection. No cystitis, pyelonephritis or hematuria. Not associated with indwelling catheter. First trimester intrauterine ; positive test in emergency department. INSTRUCTIONS Drink plenty of fluids. (Your ultrasound looks good--you have a 9-week , and the fetus has a good heartbeat.). Warnings: GENERAL WARNINGS: Return or contact your physician immediately if your condition worsens or changes unexpectedly, if not improving as expected, or if other problems arise. Specifically return if problem worsens. Prescription Medications: Macrobid 100 mg: Take 1 capsule orally every 12 hours for 7 days. No refills. Substitution is permissible. Understanding of the discharge instructions verbalized by patient. Follow-up with: Oiv Ruiz MD, Obstetrics/Gynecology, , [facility], [address] [place] [id number] Follow up in about three days even if well. Call for an appointment. Summary of care provided to patient. ADDITIONAL INFORMATION Bladder Infection,Female (Adult) A bladder infection ("cystitis" or "UTI") usually causes a constant urge to urinate and a burning when passing urine. Urine may be cloudy, smelly or dark. There may be pain in the lower abdomen. A bladder infection occurs when bacteria from the vaginal area enter the bladder opening (urethra). This can occur from sexual intercourse, wearing tight clothing, dehydration and other factors. Home Care: Drink lots of fluids (at least 6-8 glasses a day, unless you must restrict fluids for other medical reasons). This will force the medicine into your urinary system and flush the bacteria out of your body. Avoid sexual intercourse until your symptoms are gone. Avoid caffeine, alcohol and spicy foods. These can irritate the bladder. A bladder infection is treated with antibiotics. You may also be given Pyridium (generic = phenazopyridine) to reduce the burning sensation. This medicine will cause your urine to become a bright orange color. The orange urine may stain clothing. You may wear a pad or panty-liner to protect clothing. Preventing Future Infections: Always wipe from front to back after a bowel movement. Keep the genital area clean and dry. Drink plenty of fluids each day to avoid dehydration. Both sexual partners should wash before intercourse. Urinate right after intercourse to flush out the bladder. Wear cotton underwear and cotton-lined panty hose; avoid tight-fitting pants. If you are on control pills and are having frequent bladder infections, discuss with your doctor. Follow Up: Return to this facility or see your doctor if ALL symptoms are not gone after three days of treatment. Get Prompt Medical Attention if any of the following occur: Fever of 100.4F (38C) or higher, or as directed by your healthcare provider No improvement by the third day of treatment Increasing back or abdominal pain Repeated vomiting; unable to keep medicine down Weakness, dizziness or fainting Vaginal discharge Pain, redness or swelling in the labia (outer vaginal area) Your exam today shows that you are . During , it is normal to develop tender swollen breasts, frequent urination and mild vaginal discharge. During the first three months, nausea is common. Guidelines For A Healthy : To ensure that your baby is born healthy there are certain things that you can do: When you feel tired, you should REST. This is especially true in the later months of . Your body needs more FLUIDS than you may be used to: You should drink 8-10 glasses of juice, milk or water. Eat well-balanced MEALS at regular intervals to supply your body with enough protein. You can expect a total weight gain of about 30 pounds during the . Do not try to diet or lose weight while you are . Because of the extra nutritional needs during , take one VITAMIN daily. Do not take any other MEDICINE during your (prescribed or [id number]) unless your doctor specifically recommends this. Many drugs can have harmful effects on the growing baby. If NAUSEA or VOMITING become a problem, avoid greasy and fried foods. Eat several smaller meals throughout the day rather than three large meals. If you SMOKE, you must stop. The nicotine you breathe in goes right to the baby. Stay away from ALCOHOL, even in moderate amounts. Daily drinking will harm your baby and can cause permanent brain damage. RECREATIONAL DRUGS are harmful, especially cocaine, crack, and heroin. Marijuana should also be avoided. If you were using recreational drugs or prescribed medicine when you found out that you were , talk to your doctor about possible effects on the fetus. Follow Up: Call to arrange for care. This can be provided by your family doctor, an filament shaper ( specialist) or a primary care clinic. Get Prompt Medical Attention if any of the following occur: Vaginal bleeding Moderate or severe abdominal or back pain Excessive vomiting, unable to keep any fluids down for six hours Burning with urination Headache, dizziness or rapid weight gain Your exam today shows that you are . During , it is normal to develop tender swollen breasts, frequent urination and mild vaginal discharge. During the first three months, nausea is common. Guidelines For A Healthy : To ensure that your baby is born healthy there are certain things that you can do: When you feel tired, you should REST. This is especially true in the later months of . Your body needs more FLUIDS than you may be used to: You should drink 8-10 glasses of juice, milk or water. Eat well-balanced MEALS at regular intervals to supply your body with enough protein. You can expect a total weight gain of about 30 pounds during the . Do not try to diet or lose weight while you are . Because of the extra nutritional needs during , take one VITAMIN daily. Do not take any other MEDICINE during your (prescribed or [id number]) unless your doctor specifically recommends this. Many drugs can have harmful effects on the growing baby. If NAUSEA or VOMITING become a problem, avoid greasy and fried foods. Eat several smaller meals throughout the day rather than three large meals. If you SMOKE, you must stop. The nicotine you breathe in goes right to the baby. Stay away from ALCOHOL, even in moderate amounts. Daily drinking will harm your baby and can cause permanent brain damage. RECREATIONAL DRUGS are harmful, especially cocaine, crack, and heroin. Marijuana should also be avoided. If you were using recreational drugs or prescribed medicine when you found out that you were , talk to your doctor about possible effects on the fetus. Follow Up: Call to arrange for care. This can be provided by your family doctor, an filament shaper ( specialist) or a primary care clinic. Get Prompt Medical Attention if any of the following occur: Vaginal bleeding Moderate or severe abdominal or back pain Excessive vomiting, unable to keep any fluids down for six hours Burning with urination Headache, dizziness or rapid weight gain Nitrofurantoin, Nitrofurantoin, Macrocrystalline Oral capsule What is this medicine? NITROFURANTOIN (asutin smith) is an antibiotic. It is used to treat urinary tract infections. How should I use this medicine? Take this medicine by mouth with a glass of water. Follow the directions on the prescription label. Take this medicine with food or milk. Take your doses at regular intervals. Do not take your medicine more often than directed. Do not stop taking except on your doctor's advice. Talk to your access analyst regarding the use of this medicine in children. While this drug may be prescribed for selected conditions, precautions do apply. What side effects may I notice from receiving this medicine? Side effects that you should report to your doctor or health date night caregiver as soon as possible: allergic reactions like skin rash or hives, swelling of the face, lips, or tongue chest pain cough difficulty breathing dizziness, drowsiness fever or infection joint aches or pains pale or blue-tinted skin redness, blistering, peeling or loosening of the skin, including inside the mouth tingling, burning, pain, or numbness in hands or feet unusual bleeding or bruising unusually weak or tired yellowing of eyes or skin Side effects that usually do not require medical attention (report to your doctor or health date night caregiver if they continue or are bothersome): dark urine diarrhea headache loss of appetite nausea or vomiting temporary hair loss What may interact with this medicine? antacids containing magnesium trisilicate probenecid quinolone antibiotics like ciprofloxacin, lomefloxacin, norfloxacin and ofloxacin sulfinpyrazone What if I miss a dose? If you miss a dose, take it as soon as you can. If it is almost time for your next dose, take only that dose. Do not take double or extra doses. Where should I keep my medicine? Keep out of the reach of children. Store at room temperature between 15 and 30 degrees C (59 and 86 degrees F). Protect from light. Throw away any unused medicine after the expiration date. What should I tell my health care provider before I take this medicine? They need to know if you have any of these conditions: anemia diabetes [id number] dehydrogenase deficiency kidney disease liver disease lung disease other chronic illness an unusual or allergic reaction to nitrofurantoin, other antibiotics, other medicines, foods, dyes or preservatives or trying to get breast-feeding What should I watch for while using this medicine? Tell your doctor or health date night caregiver if your symptoms do not improve or if you get new symptoms. Drink several glasses of water a day. If you are taking this medicine for a long time, visit your doctor for regular checks on your progress. If you are diabetic, you may get a false positive result for sugar in your urine with certain brands of urine tests. Check with your doctor. You have been given the following additional information: Bladder Infection, Female (Adult) , New Dx , New Dx Nitrofurantoin, Nitrofurantoin, Macrocrystalline Oral capsule (Electronically signed by Norma Parra MD 02/25/2017 4:17)
--- NOTE | 2017-02-25 06:55 | DIAGNOSTIC IMAGING REPORT ---
PROCEDURE: US OB 1ST TRIMESTER W/TRANSVAG INDICATION: Left flank pain. Initial encounter. TECHNIQUE: Sanders scale, color, and spectral Doppler transabdominal and endovaginal sonographic images of the first trimester gravid uterus were obtained. COMPARISON: None. FINDINGS: TRANSABDOMINAL SCANS: Normal kidneys. TRANSVAGINAL SCANS: Single intrauterine gestational sac with yolk sac and pole. [place]-rump length 2.3 cm, 9 weeks. SIXTO 09/29/2017. Heart rate 176 bpm. Normal closed cervix measures 3.6 cm. Ovaries are unremarkable. No free fluid in the cul-de-sac. IMPRESSION: 1. Single live intrauterine , 9 weeks 2. SIXTO 09/29/2017,
--- NOTE | 2017-02-25 06:55 | DIAGNOSTIC IMAGING REPORT ---
PROCEDURE: US OB 1ST TRIMESTER W/TRANSVAG INDICATION: Left flank pain. Initial encounter. TECHNIQUE: Sanders scale, color, and spectral Doppler transabdominal and endovaginal sonographic images of the first trimester gravid uterus were obtained. COMPARISON: None. FINDINGS: TRANSABDOMINAL SCANS: Normal kidneys. TRANSVAGINAL SCANS: Single intrauterine gestational sac with yolk sac and pole. [place]-rump length 2.3 cm, 9 weeks. SIXTO 09/29/2017. Heart rate 176 bpm. Normal closed cervix measures 3.6 cm. Ovaries are unremarkable. No free fluid in the cul-de-sac. IMPRESSION: 1. Single live intrauterine , 9 weeks 2. SIXTO 09/29/2017,
== END 2017-02-25 00:25 | disposition home or self-care (01) ==
LOC: ED SRH 20:24
DX: O23.41 Unspecified infection of urinary tract in pregnancy, first trimester (principal); Z3A.09 9 weeks gestation of pregnancy; Z88.0 Allergy status to penicillin
CPT/HCPCS: 90004; 90100; 90195; 90197; 90469; 95059; 98428

== ENCOUNTER 2017-05-05 16:22 | Outpatient (CLI) | payer OTHER ==
--- NOTE | 2017-05-05 17:57 | DIAGNOSTIC IMAGING REPORT ---
PROCEDURE: US OB DETAILED ANATOMIC INDICATION: ANATOMY TECHNIQUE: Sanders scale, color, and spectral Doppler images of the second trimester gravid uterus were obtained. COMPARISON: Compared to obstetric ultrasound 01/28/2017 out (SIXTO 09/29/2017). FINDINGS: There is a viable in variable cephalic position. Placenta is posterior and there is no evidence of previa. Normal fluid and cervix length. Anatomic survey is partially limited due to body habitus. Allowing for this, anatomic survey is within normal limits including brain and ventricles, facial structures and orbits (to the extent visualized), nuchal region, spine, chest diaphragm, four-chamber heart, cardiac outflow tracts (to the extent visualized) , abdomen, stomach, kidneys, three-vessel cord insertion, pelvis and urinary bladder. Upper and lower extremities are present. BPD 4.2 cm (18.7 weeks), HC 16.2 cm (19.0 weeks), AC 13.4 cm (19.0 weeks), FL 3.0 cm (19.0 weeks). IMPRESSION: 1. Viable intrauterine at 19.0 weeks menstrual age (plus or minus 1.5 weeks). SIXTO is 09/29/2017. Normal growth. 2. Variable cephalic position. 3. Normal anatomic survey (partially limited due to body habitus).
== END 2017-05-05 23:00 ==
LOC: US SRH 16:22
DX: Z34.92 Encounter for supervision of normal pregnancy, unspecified, second trimester (principal); Z3A.19 19 weeks gestation of pregnancy